=== PATIENT | male | born 1990 ===

== ENCOUNTER 2017-02-13 21:00 | Emergency (ER) | payer MEDICAID ==
[2017-02-13 21:00] VITALS: BMI 26.1
[2017-02-13] MEDS ORDERED: Lidocaine 5% Oint(35 gm) TOP STA (22:16)
--- NOTE | 2017-02-13 22:22 | ED PDOC ---
Arrival/HPI <Jerzy Hassan - Last Filed: 02/13/17 22:28> - General Historian: Patient <Eric Cleaning - Last Filed: 02/13/17 22:56> - General Chief Complaint: GI Problem Time Seen by Provider: 02/13/17 22:07 - History of Present Illness Narrative History of Present Illness (Text): 02/13/17 22:19 26 y/o male, no significant pmh, nkda, c/o rectal hemorroid pain x 3 days. Pt. stated that he was constipated about 3 days ago, been straining and had a large bowel hard bowel movement, been having rectal pain, aggravated by seating, no fever or chills, no night sweat, no palpitation, no dizziness, no change in vision, no other medical or psychological complaints. (Eric Cleaning) Past Medical History - Provider Review Nursing Documentation Reviewed: Yes - Infectious Disease Hx of Infectious Diseases: None - Tetanus Immunization Tetanus Immunization: Unknown - Psychiatric Hx Substance Use: Yes ([facility]) <Eric Cleaning - Last Filed: 02/13/17 22:56> Family/Social History - Physician Review Nursing Documentation Reviewed: Yes Family/Social History: Unknown Family HX Smoking Status: Current Some Days Smoker Hx Alcohol Use: Yes Hx Substance Use: Yes ([facility]) <Eric Cleaning - Last Filed: 02/13/17 22:56> Allergies/Home Meds <Jerzy Hassan - Last Filed: 02/13/17 22:28> <Eric Cleaning - Last Filed: 02/13/17 22:56> Allergies/Adverse Reactions: Allergies No Known Allergies Allergy (Verified 05/27/16 11:17) Review of Systems - Review of Systems Constitutional: absent: Fatigue, Fevers Eyes: absent: Vision Changes ENT: absent: Hearing Changes Respiratory: absent: SOB, Cough Cardiovascular: absent: Chest Pain Gastrointestinal: Other (rectal pain). absent: Abdominal Pain, Nausea, Vomiting Musculoskeletal: absent: Arthralgias, Back Pain Neurological: absent: Headache, Dizziness <Eric Cleaning - Last Filed: 02/13/17 22:56> Physical Exam Pain Distress: Severe Mental Status: Positive for: Alert and Oriented X 3 - Systems Exam Head: Present: Atraumatic, Normocephalic Pupils: Present: PERRL Extroacular Muscles: Present: EOMI Conjunctiva: Present: Normal Mouth: Present: Moist Mucous Membranes Neck: Present: Normal Range of Motion Respiratory/Chest: Present: Clear to Auscultation, Good Air Exchange. No: Respiratory Distress, Accessory Muscle Use Cardiovascular: Present: Regular Rate and Rhythm, Normal S1, S2. No: Murmurs Abdomen: Present: Normal Bowel Sounds. No: Tenderness, Distention, Peritoneal Signs Rectal: Present: Hemorrhoids (visble 2-3 hemorroids with no rectal prolapse), Normal Rectal Tone. No: Occult Blood, Rectal Tenderness, Gross Blood, Melena, Fissures, Nodule/Mass/Lesions Back: Present: Normal Inspection Upper Extremity: Present: Normal Inspection. No: Cyanosis, Edema Lower Extremity: Present: Normal Inspection. No: Edema Neurological: Present: GCS=15, Speech Normal, Motor Func Grossly Intact, Gait Normal, Memory Normal Skin: Present: Warm, Dry, Normal Color. No: Rashes Psychiatric: Present: Alert, Oriented x 3, Normal Insight, Normal Concentration <Eric Cleaning - Last Filed: 02/13/17 22:56> Medical Decision Making <Jerzy Hassan - Last Filed: 02/13/17 22:28> <Eric Cleaning - Last Filed: 02/13/17 22:56> ED Course and Treatment: 02/13/17 22:22 -toradol IM and topical lidocaine -Discharge home with motrin, miralax, gayle-yves topical rectal, high fiber diet, sitz bath, stay hydrated, follow up with your own pmd and GI/drivers' cash clerk within 2 days, return to the ER for any new or worsening signs or symptoms. 02/13/17 22:56 -pain resolved, request to be discharge home. 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 <Eric Cleaning - Last Filed: 02/13/17 22:56> Disposition/Present on Arrival <Jerzy Hassan - Last Filed: 02/13/17 22:28> - Present on Arrival Any Indicators Present on Arrival: No History of DVT/PE: No History of Uncontrolled Diabetes: No Urinary Catheter: No History of Decub. Ulcer: No History Surgical Site Infection Following: None - Disposition Have Diagnosis and Disposition been Completed?: Yes Disposition Time: 22:25 Patient Plan: Discharge <Eric Cleaning - Last Filed: 02/13/17 22:56> - Disposition Diagnosis: Hemorrhoid Patient Problems: Current Active Problems Problem Status Onset Hemorrhoid Acute Condition: IMPROVED Additional Instructions: Discharge home with motrin, miralax, gayle-yves topical rectal, high fiber diet, sitz bath, stay hydrated, follow up with your own pmd and GI/drivers' cash clerk within 2 days, return to the ER for any new or worsening signs or symptoms. Prescriptions: Hydrocortisone/Lidocaine/Aloe [Gayle-Yves 2-2% Kit] 1 appful RC BID PRN #1 kit PRN Reason: Other Ibuprofen [Motrin] 600 mg PO QID PRN #24 tab PRN Reason: Other Polyethylene Glycol 3350 [Miralax] 1 packet PO DAILY PRN #5 packet PRN Reason: Other Referrals: Lisa ZHOU,MD Blake [Medical Doctor] - Follow up with primary [facility] [place] - Follow up with primary Forms: WORK NOTE
[2017-02-13 23:19] VITALS: BP 126/74; PULSE 78; RESP 18; O2SAT 99
== END 2017-02-13 23:00 | disposition home or self-care (01) ==
LOC: ED 21:00
DX: K64.9 Unspecified hemorrhoids (principal)
CPT/HCPCS: 96372; 99283; J1885

== ENCOUNTER 2017-07-24 16:57 | Emergency (ER) | payer MEDICAID, OTHER ==
[2017-07-24 16:59] VITALS: BMI 26.1
[2017-07-24 17:36] VITALS: BP 113/73; PULSE 96; TEMP 98.6
[2017-07-24] MEDS ORDERED: TDAP Vaccine 0.5 mL Syr IM ONE (17:38)
--- NOTE | 2017-07-24 17:42 | ED PDOC ---
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 Pt reports, " heavy object fell on my hand ". Otherwise, pt denies obvious deformity, weakness, sensory or vascular deficits to Right hand. Ambulate to ED for evaluation, not in any apparent distress. Past Medical History - Provider Review Nursing Documentation Reviewed: Yes - Travel History Have you recently traveled outside [place] w/in the past 3 mons?: No - Infectious Disease Hx of Infectious Diseases: None - Tetanus Immunization Tetanus Immunization: Unknown - Psychiatric Hx Substance Use: Yes ([facility]) - Anesthesia Hx Anesthesia: No Family/Social History - Physician Review Nursing Documentation Reviewed: Yes Family/Social History: No Known Family HX Smoking Status: Current Some Days Smoker Hx Alcohol Use: Yes Frequency of alcohol use: Socially Hx Substance Use: Yes ([facility]) Allergies/Home Meds Allergies/Adverse Reactions: Allergies No Known Allergies Allergy (Verified 07/24/17 17:17) Review of Systems - Physician Review All systems were reviewed & negative as marked: Yes - Review of Systems Constitutional: Normal Musculoskeletal: Normal Skin: Laceration Neurological: Normal Endocrine: Normal Hemo/Lymphatic: Normal Physical Exam Vital Signs Reviewed: Yes Vital Signs Temp Pulse Resp BP Pulse Ox 07/24/17 17:19 98.6 F 96 H 17 113/73 96 Temperature: Afebrile Blood Pressure: Normal Pulse: Regular Respiratory Rate: Normal Appearance: Positive for: Well-Appearing, Non-Toxic, Comfortable Pain Distress: Mild Mental Status: Positive for: Alert and Oriented X 3 - Systems Exam Upper Extremity: Present: Normal ROM (Right hand, no neurovascular deficist distally to injury.), NORMAL PULSES, Tenderness (mild tenderness to distal phalanx Right 3rd and 4th fingers), Neurovascularly Intact (Right hand), Capillary Refill < 2s (Right hand). No: Swelling, Deformity Neurological: Present: GCS=15, Normal Sensory Function, Norm Deep Tendon Reflexes Skin: Present: Warm, Normal Color, Laceration (superifical laceration to dorsal aspect Right 3rd and 4th distal phalanx. No wound edema, no discharges.) Psychiatric: Present: Alert Medical Decision Making ED Course and Treatment: 07/24/17 17:42 On re-evaluation, pt is afebrile, hemodynamicaly stable. non-toxic. Right hand: small superficial lacerations to Right 3rd and 4th distal phalanx. FAROM, no neurovascular deficits. Laceration closed with skin adhesives. Imaging review and appears normal. tetanus given. Pt advised on wound care. ref. to f/u with PMD in 2-3 days for re-eval. return to ED if any worsening or new changes. - RAD Interpretation Radiology Orders: 07/24/17 17:38 HAND RIGHT 3 VIEWS [RAD] Stat (-) acute fx or dislocation - Medication Orders Current Medication Orders: Discontinued Medications Tetanus/Reduced Diphtheria/Acell Pertussis (Boostrix Vaccine Inj) 0.5 ml IM .ONCE ONE Stop: 07/24/17 17:39 Last Admin: 07/24/17 17:58 Dose: 0.5 ml Immunization Registry Document 07/24/17 17:58 [email or web address] (Rec: 07/24/17 17:58 [email or web address] [facility] ) Immunization Registry Consent Date 07/24/17 Disposition/Present on Arrival - Present on Arrival Any Indicators Present on Arrival: No History of DVT/PE: No History of Uncontrolled Diabetes: No Urinary Catheter: No History of Decub. Ulcer: No History Surgical Site Infection Following: None - Disposition Have Diagnosis and Disposition been Completed?: Yes Diagnosis: Contusion, fingers, Laceration Disposition: HOME/ ROUTINE Disposition Time: 17:44 Patient Plan: Discharge Patient Problems: Current Active Problems Problem Status Onset Contusion, fingers Acute Laceration Acute Condition: STABLE Discharge Instructions (ExitCare): Finger Laceration (ED), Finger Sprain (ED), Skin Adhesive Care (ED) Additional Instructions: LIGHT DUTY TO RIGHT HAND FOR 1 WEEK KEEP WOUND DRY FOR 3-4 DAYS FOLLOW UP WITH PMD, HAND SPECIALIST IN 2-3 DAYS FOR RE-EVALUATION. RETURN TO ED IF ANY WORSENING OR NEW CHANGES. Prescriptions: traMADol [Ultram] 50 mg PO TID #7 tab Referrals: Honorio Roche, [Primary Care Provider] - Follow up with primary Forms: [employer] (Martiniquais), WORK NOTE Laceration - Laceration Repair Right 3,4 fingers Wound Length (In cm): 0.39 in Description Of Wound: Linear, Clean Wound Examination: Irrigated With Saline, No FB With Wound Exploration, No Tendon Injury With Wound Exploration Wound Closure: Steri Strips, Skin Glue Wound Complexity: Simple
[2017-07-24 18:38] VITALS: RESP 18; O2SAT 98
--- NOTE | 2017-07-25 10:00 | RAD ---
PROCEDURE: Right Hand Radiographs. HISTORY: injury COMPARISON: None. FINDINGS: BONES: Normal. No fracture. JOINTS: Normal. No osteoarthritic changes. SOFT TISSUES: Normal. OTHER FINDINGS: None. IMPRESSION: Normal right hand radiographs.
== END 2017-07-24 18:38 | disposition home or self-care (01) ==
LOC: ED 16:57
DX: S61.212A Laceration without foreign body of right middle finger without damage to nail, initial encounter (principal); S61.214A Laceration without foreign body of right ring finger without damage to nail, initial encounter; W20.8XXA Other cause of strike by thrown, projected or falling object, initial encounter; Y92.9 Unspecified place or not applicable; Z23 Encounter for immunization

== ENCOUNTER 2018-05-04 21:20 | Emergency (ER) | payer SELFPAY ==
[2018-05-04 21:30] VITALS: BMI 24.3
[2018-05-04 21:46] VITALS: TEMP 99; O2SAT 100
[2018-05-04] MEDS ORDERED: Sodium Chloride 0.9% 1,000 ML IV STA (21:49)
[2018-05-04 22:20] LABS: BASO # 0.01 K/mm3 (0.0-2.0); BASO % 0.1 % (0.0-3.0); GRAN # 9.29 (1.4-6.5); GRAN % 76.7 % (50.0-68.0); HEMOGLOBIN 15.2 g/dL (14.0-18.0); LYMPH # 1.6 (1.2-3.4); LYMPH % 13.1 % (22.0-35.0); MEAN CELL VOLUME 89.3 fl (80.0-105.0); MEAN CORPUSCULAR HEMOGLOBIN 31.9 pg (25.0-35.0); MEAN CORPUSCULAR HGB CONC 35.7 g/dl (31.0-37.0); MEAN PLATELET VOLUME 11.5 fl (7.0-11.0); MONO # 1.2 (0.1-0.6); MONO % 10.1 % (1.0-6.0); RBC 4.77 10^6/uL (3.5-6.1); RED CELL DISTRIBUTION WIDTH 12.8 % (11.5-14.5); WHITE BLOOD COUNT 12.1 10^3/ul (4.5-11.0)
--- NOTE | 2018-05-04 22:22 | ED PDOC ---
Arrival/HPI - General Chief Complaint: GI Problem Time Seen by Provider: 05/04/18 21:31 Historian: Patient - History of Present Illness Narrative History of Present Illness (Text): 05/04/18 22:09 A 27 year old male, with no significant past medical history, presents to the emergency department with a complaint of one day duration vomiting and nausea. The patient states that he noticed some blood in his vomitus. The patient denies fevers, chills, headache, dizziness, sore throat, cough, chest pain, shortness of breath, dyspnea on exertion, abdominal pain, diarrhea, neck/back pain, urinary/bowel changes or any other complaint. Time/Duration: Other (1 days) Symptom Onset: Sudden Symptom Course: Unchanged Activities at Onset: Rest, Light Context: Home Past Medical History - Provider Review Nursing Documentation Reviewed: Yes - Infectious Disease Hx of Infectious Diseases: None - Tetanus Immunization Tetanus Immunization: Unknown - Gastrointestinal Hx Gastritis: Yes - Psychiatric Hx Substance Use: Yes ([facility]) - Anesthesia Hx Anesthesia: No Family/Social History - Physician Review Nursing Documentation Reviewed: Yes Family/Social History: No Known Family HX Smoking Status: Current Some Days Smoker Hx Alcohol Use: Yes Hx Substance Use: Yes ([facility]) Allergies/Home Meds Allergies/Adverse Reactions: Allergies No Known Allergies Allergy (Verified 07/24/17 17:17) Review of Systems - Physician Review All systems were reviewed & negative as marked: Yes - Review of Systems Constitutional: absent: Fevers ENT: absent: Sore Throat Respiratory: absent: SOB, Cough Cardiovascular: absent: Chest Pain, COTO Gastrointestinal: Nausea, Vomiting, Hematemesis. absent: Abdominal Pain, Stool Changes, Diarrhea Musculoskeletal: absent: Back Pain, Neck Pain Neurological: absent: Headache, Dizziness Physical Exam Vital Signs Reviewed: Yes Vital Signs Temp Pulse Resp BP Pulse Ox 05/05/18 01:20 79 17 112/60 100 05/04/18 21:30 99 F 77 18 99/54 L 100 Temperature: Afebrile Blood Pressure: Hypotensive Pulse: Regular Respiratory Rate: Normal Appearance: Positive for: Well-Appearing, Non-Toxic, Comfortable Pain Distress: None Mental Status: Positive for: Alert and Oriented X 3 - Systems Exam Head: Present: Atraumatic, Normocephalic Pupils: Present: PERRL Extroacular Muscles: Present: EOMI Conjunctiva: Present: Normal Mouth: Present: Moist Mucous Membranes Neck: Present: Normal Range of Motion Respiratory/Chest: Present: Clear to Auscultation, Good Air Exchange. No: Respiratory Distress, Accessory Muscle Use Cardiovascular: Present: Regular Rate and Rhythm, Normal S1, S2. No: Murmurs Abdomen: No: Tenderness, Distention, Peritoneal Signs Back: Present: Normal Inspection Upper Extremity: Present: Normal Inspection. No: Cyanosis, Edema Lower Extremity: Present: Normal Inspection. No: Edema Neurological: Present: GCS=15, CN II-XII Intact, Speech Normal Skin: Present: Warm, Dry, Normal Color. No: Rashes Psychiatric: Present: Alert, Oriented x 3, Normal Insight, Normal Concentration Medical Decision Making ED Course and Treatment: 05/04/18 22:11 Impression: A 27 year old male presents to the emergency department with a complaint of 1 day duration nausea, vomiting, and mild hematemesis. Plan: -- Abdomen/Pelvis CT -- Urinalysis -- Reglan, Pepcid, Zofran, and IV Fluids -- Reassess and disposition Prior Visits: Notes and results from previous visits were reviewed. Progress Notes: EXAM: CT Abdomen and Pelvis Without Intravenous Contrast EXAM DATE/TIME: 05/04/2018 10:43 PM. Dictated and Authenticated by: Ramírez Lehman MD 05/05/2018 1:00 AM Eastern Time ([place] & [place]) IMPRESSION: No acute findings. 05/05/18 01:19 On reevaluation the patient feels better and is in no acute distress. I have discussed the results and plan with the patient, who expresses understanding. Patient given the opportunity to ask question, all questions were answered and there is agreement with the plan to discharge the patient home. Patient is stable for discharge. Patient was instructed to follow up with physician/clinic in 1-2 days or return if symptoms persist/worsen or new concerning symptoms arise. - Lab Interpretations Lab Results: 05/04/18 21:38 05/04/18 21:38 Lab Results 05/04/18 21:38: Sodium 136, Potassium 3.2 L, Chloride 93 L, Carbon Dioxide 30, Anion Gap 16, BUN 10, Creatinine 0.7 L, Est GFR ( Amer) > 60, Est GFR ( Non-Af Amer) > 60, Random Glucose 130 H, Calcium 9.9, Magnesium 2.0, Total Bilirubin 0.6, AST 28, ALT 24, Alkaline Phosphatase 58, Total Protein 7.3, Albumin 4.5, Globulin 2.8, Albumin/Globulin Ratio 1.6, Lipase 263 05/04/18 21:38: PT 13.6 H, INR 1.19, APTT 28.1 05/04/18 21:38: WBC 12.1 H D, RBC 4.77, Hgb 15.2, Hct 42.6, MCV 89.3, MCH 31.9, MCHC 35.7, RDW 12.8, Plt Count 301, MPV 11.5 H, Gran % 76.7 H, Lymph % (Auto) 13.1 L, Winston % (Auto) 10.1 H, Eos % (Auto) 0.0 L, Baso % (Auto) 0.1, Gran # 9.29 H, Lymph # (Auto) 1.6, Winston # (Auto) 1.2 H, Eos # (Auto) 0.0, Baso # (Auto ) 0.01 - RAD Interpretation Radiology Orders: 05/04/18 22:43 ABD & PELVIS W/O PO OR IV CONT [CT] Stat - Medication Orders Current Medication Orders: Discontinued Medications Famotidine (Pepcid) 20 mg IVP STAT STA Stop: 05/04/18 21:50 Last Admin: 05/04/18 22:10 Dose: 20 mg IVP Administration Document 05/04/18 22:10 RD (Rec: 05/04/18 22:10 RD [id number]) Charges for Administration # of IVP Administrations 1 Sodium Chloride (Sodium Chloride 0.9%) 1,000 mls @ 1,000 mls/hr IV .Q1H STA Stop: 05/04/18 22:48 Last Admin: 05/04/18 22:00 Dose: 1,000 mls/hr eMAR Start Stop Document 05/04/18 22:00 RD (Rec: 05/04/18 22:10 RD [id number]) Intravenous Solution Start Date 05/04/18 Start Time 22:00 End Date 05/04/18 End time 23:00 Total Infusion Time 60 Metoclopramide HCl (Reglan) 10 mg IVP ONCE ONE Stop: 05/04/18 22:31 Last Admin: 05/04/18 22:38 Dose: 10 mg IVP Administration Document 05/04/18 22:38 RD (Rec: 05/04/18 22:57 RD [id number]) Charges for Administration # of IVP Administrations 1 Ondansetron HCl (Zofran Inj) 4 mg IVP STAT STA Stop: 05/04/18 21:50 Last Admin: 05/04/18 22:00 Dose: 4 mg IVP Administration Document 05/04/18 22:00 RD (Rec: 05/04/18 22:10 RD [id number]) Charges for Administration # of IVP Administrations 1 Ondansetron HCl (Zofran Inj) 4 mg IVP STAT STA Stop: 05/05/18 00:00 Last Admin: 05/05/18 00:01 Dose: 4 mg IVP Administration Document 05/05/18 00:01 RD (Rec: 05/05/18 00:01 RD [id number]) Charges for Administration # of IVP Administrations 1 - Scribe Statement The provider has reviewed the documentation as recorded by the Sultana Genao Provider Scribe Attestation: All medical record entries made by the Scribe were at my direction and personally dictated by me. I have reviewed the chart and agree that the record accurately reflects my personal performance of the history, physical exam, medical decision making, and the department course for this patient. I have also personally directed, reviewed, and agree with the discharge instructions and disposition. Disposition/Present on Arrival - Present on Arrival Any Indicators Present on Arrival: No History of DVT/PE: No History of Uncontrolled Diabetes: No Urinary Catheter: No History of Decub. Ulcer: No History Surgical Site Infection Following: None - Disposition Have Diagnosis and Disposition been Completed?: Yes Diagnosis: Gastroenteritis Disposition: HOME/ ROUTINE Disposition Time: 03:20 Condition: IMPROVED Discharge Instructions (ExitCare): Gastroenteritis (ED) Prescriptions: Ondansetron [Zofran Odt] 8 mg PO TID PRN #10 odt PRN Reason: Nausea/Vomiting Forms: [employer] (Congolese)
[2018-05-04 22:29] LABS: INR 1.19; PARTIAL THROMBOPLASTIN TIME 28.1 Seconds (25.1-36.5); PROTHROMBIN TIME 13.6 SECONDS (9.4-12.5)
[2018-05-04 22:31] LABS: ALB/GLOB RATIO 1.6 (1.1-1.8); ALBUMIN 4.5 g/dL (3.0-4.8); ALT/SGPT 24 U/L (7-56); AST/SGOT 28 U/L (17-59); BLOOD UREA NITROGEN 10 mg/dL (7-21); CALCIUM 9.9 mg/dL (8.4-10.5); GFR NON-AFRICAN AMERICAN > 60; LIPASE 263 U/L (23-300)
[2018-05-05 01:40] VITALS: BP 112/60; PULSE 79; RESP 17
--- NOTE | 2018-05-05 14:09 | CT ---
Date of service: 05/04/2018 PROCEDURE: CT Abdomen and Pelvis without intravenous contrast HISTORY: abdomen pain COMPARISON: None. TECHNIQUE: Without contrast.. Contrast dose: Radiation dose: Total exam DLP = 303 mGy-cm. This CT exam was performed using one or more of the following dose reduction techniques: Automated exposure control, adjustment of the mA and/or kV according to patient size, and/or use of iterative reconstruction technique. FINDINGS: LOWER THORAX: Unremarkable. LIVER: Unremarkable. No gross lesion or ductal dilatation. GALLBLADDER AND BILE DUCTS: Unremarkable. PANCREAS: Unremarkable. No gross lesion or ductal dilatation. SPLEEN: Unremarkable. ADRENALS: Unremarkable. No mass. KIDNEYS AND URETERS: Unremarkable. No hydronephrosis. No solid mass. VASCULATURE: Unremarkable. No aortic aneurysm. BOWEL: Unremarkable. No obstruction. No gross mural thickening. APPENDIX: Unremarkable. Normal appendix. PERITONEUM: Unremarkable. No free fluid. No free air. LYMPH NODES: Unremarkable. No enlarged lymph nodes. BLADDER: Unremarkable. REPRODUCTIVE: Unremarkable. BONES: No acute fracture. OTHER FINDINGS: The report concurs with the preliminary [facility] report IMPRESSION: No acute findings
== END 2018-05-05 01:20 | disposition home or self-care (01) ==
LOC: ED 21:20
DX: K52.9 Noninfective gastroenteritis and colitis, unspecified (principal)
CPT/HCPCS: 74176; 80053; 83690; 83735; 85025; 85610; 85730; 96361; 96374; 96375; 96376; 99283; J2405; J2765; J7030

== ENCOUNTER 2018-06-28 19:24 | Emergency (ER) | payer SELFPAY ==
[2018-06-28 19:25] VITALS: BMI 22.9
[2018-06-28 19:40] VITALS: TEMP 98.1
[2018-06-28] MEDS ORDERED: Sodium Chloride 0.9% 1,000 ML IV STA (19:57)
[2018-06-28] MEDS ORDERED: TDAP Vaccine 0.5 mL Syr IM ONE (19:57)
[2018-06-28] MEDS ORDERED: Iohexol 350 MG/100 ML VIAL ONE (20:18)
[2018-06-28 20:46] LABS: BASO # 0.08 K/mm3 (0.0-2.0); EOS # 0.4 (0.0-0.7); EOS % 5.1 % (1.5-5.0); GRAN # 2.87 (1.4-6.5); HEMOGLOBIN 13.6 g/dL (14.0-18.0); LYMPH # 3.9 (1.2-3.4); LYMPH % 49.6 % (22.0-35.0); MEAN CELL VOLUME 90.9 fl (80.0-105.0); MEAN CORPUSCULAR HEMOGLOBIN 31.7 pg (25.0-35.0); MEAN CORPUSCULAR HGB CONC 34.9 g/dl (31.0-37.0); MEAN PLATELET VOLUME 11.4 fl (7.0-11.0); MONO # 0.6 (0.1-0.6); MONO % 7.3 % (1.0-6.0); RBC 4.29 10^6/uL (3.5-6.1); RED CELL DISTRIBUTION WIDTH 12.6 % (11.5-14.5); WHITE BLOOD COUNT 7.8 10^3/uL (4.5-11.0)
[2018-06-28 20:49] LABS: ALB/GLOB RATIO 1.3 (1.1-1.8); ALBUMIN 3.7 g/dL (3.0-4.8); ALT/SGPT 26 U/L (7-56); AST/SGOT 17 U/L (17-59); BLOOD UREA NITROGEN 12 mg/dL (7-21); CALCIUM 8.6 mg/dL (8.4-10.5); GFR NON-AFRICAN AMERICAN > 60
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
[2018-06-28 23:31] VITALS: BP 138/83; PULSE 89; RESP 18; O2SAT 100
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
== END 2018-06-28 23:38 | disposition home or self-care (01) ==
LOC: ED 19:24
DX: S00.83XA Contusion of other part of head, initial encounter (principal); X99.1XXA Assault by knife, initial encounter; Y92.410 Unspecified street and highway as the place of occurrence of the external cause; R10.9 Unspecified abdominal pain; Z23 Encounter for immunization
CPT/HCPCS: 70450; 70486; 71260; 74177; 80053; 85025; 90471; 90715; 96360; 99283; J7030; Q9967